=== PATIENT | male | born 1995 | race Caucasian/White ===

== ENCOUNTER 2020-01-23 10:10 | Day surgery (SDC) | payer BC, SELFPAY ==
[2020-01-23] MEDS ORDERED: Ringers Lactate 1,000 ML IV ONE (10:29)
[2020-01-23] MEDS ORDERED: GLUCAGON 1 MG/VIAL ONE (11:08)
[2020-01-23] MEDS ORDERED: GENTAMICIN SULF 80 MG/2ML INJ ONE (11:08)
[2020-01-23] MEDS ORDERED: propofoL 200 MG/20 ML VIAL IV ONE (12:02)
[2020-01-23] MEDS ORDERED: FENTANYL CITR 100 MCG/2 ML ONE (12:02)
[2020-01-23] MEDS ORDERED: LIDOCAINE 1% MPF 5 ML VIAL ONE (12:02)
--- NOTE | 2020-01-23 12:48 | ENDO RPT ---
[address], [address] ERCP PROCEDURE REPORT EXAM DATE: 01/23/2020 PATIENT NAME: Kev Mai MR #: [id number] BIRTHDATE: 1995 ATTENDING: Kev Mckeon Dr STATUS: outpatient BALANCE CLERK: Shellie Chavez [employer]CR[employer]ODUCTS DISPATCHER, Judy Stacy RN, Shanell Jones RN, Chelo Glasgow RN, and Leslie Babin RN INDICATIONS: The patient is a 24 yr old Male here for an ERCP due to RUQ abdominal pain, stone in distal CBD, and abnormal imaging (CT abdomen) with small stone noted in the distal CBD PROCEDURE PERFORMED: ERCP MEDICATIONS: Per Anesthesia. CONSENT: The patient understands the risks and benefits of the procedure and understands that these risks include, but are not limited to: sedation, allergic reaction, infection, perforation and/or bleeding. Alternative means of evaluation and treatment include, among others: physical exam, x-rays, and/or surgical intervention. The patient elects to proceed with this endoscopic procedure. DESCRIPTION OF PROCEDURE: During intra-op preparation period all mechanical medical equipment was checked for proper function. Hand hygiene and appropriate measures for infection prevention was taken. Procedure, possible complications, and alternatives including but not limited to the possibility of bleeding, perforation, tear, infection, sepsis, need for surgery, need for blood transfusion, and anesthesia related complications were explained to the patient. In addition, 5-30% incidence of acute pancreatitis as a result of ERCP were explained. After the risks, benefits and alternatives of the procedure were thoroughly explained, Informed was verified, confirmed and timeout was successfully executed by the treatment team. With the patient in left semi-prone position, medications were administered intravenously.The [id number] ([id number]) was passed from the mouth into the esophagus and further advanced from the esophagus into the stomach. From stomach scope was directed to the second portion of the duodenum. Major papilla was aligned with the duodenoscope. The scope position was confirmed fluoroscopically. Rest of the findings/therapeutics are given below. The scope was then completely withdrawn from the patient and the procedure completed. The pulse, BP, and O2 saturation were monitored and documented by the physician and the nursing staff throughout the entire procedure. The patient was cared for as planned according to standard protocol. The patient was then discharged to recovery in stable condition and with appropriate post procedure care. A normal appearing ampulla was visualized. There was no evidence of papillitis or any trauma to the ampulla. Cannula tip placed into ampulla with small amount of contrast injected into distal common bile duct but then patient began having unstoppable hiccups and then sneezing with mucus extruded repeatedly (congestion); with this the cannula tip banged into ampulla repeatedly from the jerking of body with hiccups and sneezing (congestion in nose / upper airway) causing minor bleeding; therefore with unstoppable jerking motion that could lead to increase risk of complications (e.g. bleeding, perforation ...), procedure was terminated. ADVERSE EVENT: None IMPRESSIONS: 1. Normal ampulla 2. Cannula tip placed into ampulla with small amount of contrast injected into distal common bile duct but then patient began having unstoppable hiccups and then sneezing with mucus extruded repeatedly (congestion); with this the cannula tip banged into ampulla repeatedly from the jerking of body with hiccups and sneezing (congestion in nose / upper airway) causing minor bleeding; therefore with unstoppable jerking motion that could lead to increase risk of complications (e.g. bleeding, perforation ...), procedure was terminated. RECOMMENDATIONS: 1. antibiotics (for possible URI and time to resolve) 2. follow-up: GI lab 2-3 week(s) REPEAT EXAM: Return in 2-3 week(s) for ERCP after URI has resolved Kev Mckeon Dr eSigned: Kev Mckeon Dr 01/23/2020 12:47 PM cc: Sadi Poole M.D. CPT CODES: ICD9 CODES: PATIENT NAME: Kev Mai MR#: [id number]
--- NOTE | 2020-01-23 13:01 | RAD REPORT ---
EXAM DESCRIPTION: Fluoroscopy for ERCP CLINICAL HISTORY: ABD PAIN Abdominal pain FINDINGS: Total fluoroscopy time: 0.4 minutes
[2020-01-23 13:24] VITALS: BP 116/68; TEMP 97.4; O2SAT 100
== END 2020-01-23 13:25 | disposition home or self-care (01) ==
LOC: OR 10:10
PROVIDERS: ATTEND Internal Medicine Gastroenterology
PROC: 0FJD8ZZ Inspection of Pancreatic Duct, Via Natural or Artificial Opening Endoscopic (ICD-10-PCS; principal; 2020-01-23 11:30)
DX: K80.50 Calculus of bile duct without cholangitis or cholecystitis without obstruction (principal); Z88.3 Allergy status to other anti-infective agents; F17.200 Nicotine dependence, unspecified, uncomplicated
CPT/HCPCS: 43260; J2704; J1580; J3010; J7120; C1769; J1610